=== PATIENT | female | born 1965 | race Caucasian/White ===

== ENCOUNTER 2016-09-05 13:39 | Outpatient (CLI) | payer BC, OTHER ==
--- NOTE | 2016-09-09 08:14 | Mammography Report ---
DIGITAL BILATERAL SCREENING MAMMOGRAM: 09/05/2016 CLINICAL HISTORY: This is a 51-year-old female in for routine screening mammogram. Patient has no f amily history of breast cancer. Patient has no breast surgeries. TECHNIQUE: Craniocaudad and oblique lateral views of each breast were obtained with [facility] Full [facility]ie [facility] digital mammography. To compliment the exam, axillary exaggerated craniocaudad view of the left b reast was done. FINDINGS: Breast parenchyma consists of scattered bilateral fibroglandular densities. They are most pronounced in the upper half of each breast. Equivocal finding is noted in regard to at least one new mass in the 12 o'clock position of the right breast 4 cm posterior superior to the right nipple as compared to preceding exam. Recommend patient return for coned-down compression craniocaudad, oblique lateral, and mediolateral views for further evaluation, and if necessary, ultrasound. There is also a cluster of calcification in the central as pect of the right breast 5.5 cm posterior to the right nipple that has shown progression over the cou rse of patient's mammograms over the last several years. Recommend magnification views in craniocaud ad and mediolateral projections for further evaluation. Left breast shows no significant abnormality. Benign calcifications are once again noted in the left breast. No significant masses are seen. IMPRESSION: FINDINGS ARE SUSPICIOUS FOR A NEW MASS MEASURING 1 CM IN DIAMETER IN THE 12 O'CLOCK POSI TION OF THE RIGHT BREAST. ALSO, THERE IS A SMALL CLUSTER OF CALCIFICATIONS IN THE CENTRAL ASPECT OF THE RIGHT BREAST THAT HAS SHOWN PROGRESSION OVER THE COURSE OF PATIENT'S SEVERAL MAMMOGRAMS. RECOMME ND PATIENT RETURN FOR ADDITIONAL IMAGING STUDIES FOR FURTHER EVALUATION INCLUDING ADDITIONAL VIEWS AN D POSSIBLY RIGHT BREAST ULTRASOUND. BIRADS 0 - INCOMPLETE. NEEDS ADDITIONAL IMAGING EVALUATION. STANDARD QUALIFYING STATEMENTS 1. This examination was reviewed with the aid of Computer-Aided Detection (CAD). 2. A negative or benign imaging report should not delay biopsy if clinically suspicious findings are present. Consider surgical consultation if warranted. More than 5% of cancers are not identified by i maging. 3. Dense breasts may obscure an underlying neoplasm. JOB #: [id number] EXT JOB #:[id number]
== END 2016-09-05 13:40 | disposition home or self-care (01) ==
LOC: DI.N 13:39
PROVIDERS: ATTEND Family Medicine
DX: Z12.31 Encounter for screening mammogram for malignant neoplasm of breast (principal); R92.1 Mammographic calcification found on diagnostic imaging of breast; N63 Unspecified lump in breast
CPT/HCPCS: 77067

== ENCOUNTER 2016-09-23 12:37 | Outpatient (CLI) | payer BC, OTHER ==
--- NOTE | 2016-09-23 14:01 | Mammography Report ---
DIGITAL DIAGNOSTIC RIGHT MAMMOGRAM: 09/23/2016 CLINICAL INDICATION: Possible obscured nodule right upper central breast, possible increase in calcif ications central right breast. TECHNIQUE: Right true lateral and spot magnification views. COMPARISON: 09/05/2016, 09/07/2015, 08/26/2014, 08/12/2013, 07/30/2012, 07/26/2011, 07/04/2011, 06/25, 06/19/2009, 05/19/2008. FINDINGS: The right breast again demonstrates heterogeneously dense fibroglandular parenchyma. The c alcifications in question, in the central right breast, appear unchanged on spot magnification views, with coarse and punctate morphology. No developing pleomorphism is seen. The density in the right up per central breast dissipates evenly on additional compression. No underlying nodule or mass lesion i s identified. IMPRESSION: BENIGN FINDINGS. RECOMMENDATION: ROUTINE ANNUAL SCREENING UNLESS OTHERWISE CLINICALLY INDICATED. BIRADS CATEGORY 2-BENIGN FINDINGS. STANDARD QUALIFYING STATEMENTS 1. This examination was reviewed with the aid of Computer-Aided Detection (CAD). 2. A negative or benign imaging report should not delay biopsy if clinically suspicious findings are present. Consider surgical consultation if warranted. More than 5% of cancers are not identified by i maging. 3. Dense breasts may obscure an underlying neoplasm. JOB #: [id number] EXT JOB #:[id number]
== END 2016-09-23 12:38 | disposition home or self-care (01) ==
LOC: DI 12:37
PROVIDERS: ATTEND Family Medicine
DX: N63 Unspecified lump in breast (principal); R92.1 Mammographic calcification found on diagnostic imaging of breast

== ENCOUNTER 2017-12-22 10:04 | Outpatient (CLI) | payer OTHER, BC ==
--- NOTE | 2017-12-22 11:14 | Mammography Report ---
Reason: BREAST PAIN, RIGHT Procedure Date: 12/22/2017 Accession Number: [id number] / [id number] Procedure: MARK ANTHONY - Diagnostic Dig Bilat CPT Code: FULL RESULT: EXAM: Diagnostic Dig Bilat DATE: 12/22/2017 11:02 AM CLINICAL HISTORY: Chronic right breast pain TECHNIQUE: Bilateral digital CC and MLO projections with right magnification views. Additional 3-D Cary symphysis. COMPARISON: 09/23/2016, 09/05/2016, 09/07/2015, 08/26/2014, 08/12/2013, 07/30/2012 and 07/26/2011 FINDINGS: The breast tissue is heterogeneously dense. Scattered calcifications in both breasts have not changed appreciably compared with prior studies. Asymmetric increased right upper outer quadrant density as before. No developing being pleomorphic calcifications, new architectural distortion, suspicious mass or other finding IMPRESSION: Benign findings RECOMMENDATION: Follow-up screening mammography in 12 months unless there is a clinical change. BIRADS CATEGORY 2: Benign findings STANDARD QUALIFYING STATEMENTS: 1. This examination was reviewed with the aid of Computer-Aided Detection (CAD). 2. A negative or benign imaging report should not delay biopsy if clinically suspicious findings are present. Consider surgical consultation if warrented. More than 5% of cancers are not identified by imaging. 3. Dense breasts may obscure an underlying neoplasm.
== END 2017-12-22 10:05 | disposition home or self-care (01) ==
LOC: DI 10:04
PROVIDERS: ATTEND Family Medicine
DX: N64.4 Mastodynia (principal)
CPT/HCPCS: 77062; 77066

== ENCOUNTER 2018-10-06 12:38 | Outpatient (CLI) | payer OTHER, BC ==
--- NOTE | 2018-10-06 16:16 | Ultrasound Report ---
Reason: LOCALIZED SUPERFICIAL SWELLING,MASS OR LUMP Procedure Date: 10/06/2018 Accession Number: [id number] / [id number] Procedure: US - Ext Limited Non Vascular CPT Code: FULL RESULT: EXAM: RIGHT UPPER EXTREMITY ULTRASOUND - LIMITED EXAM DATE: 10/06/2018 01:38 PM. CLINICAL HISTORY: Superficial upper extremity mass. COMPARISON: None. TECHNIQUE: Real-time scanning was performed with static images obtained. FINDINGS: There is a 5 x 3 x 5 mm cystic mass present without evidence of vascularity. There is mild acoustic enhancement. Mass is noncompressible. IMPRESSION: 5 mm cystic mass present without evidence of vascularity. RADIA
== END 2018-10-06 12:39 | disposition home or self-care (01) ==
LOC: DI 12:38
PROVIDERS: ATTEND Family Medicine
DX: D36.7 Benign neoplasm of other specified sites (principal)
CPT/HCPCS: 76882

== ENCOUNTER 2019-01-23 16:19 | Outpatient (CLI) | payer BC, OTHER ==
--- NOTE | 2019-01-28 09:45 | Mammography Report ---
Reason: SCREENING MAMMO Procedure Date: 01/23/2019 Accession Number: [id number] / [id number] Procedure: MARK ANTHONY - Screening Mammo w/Yasir CPT Code: FULL RESULT: EXAM: Screening Mammo w/Yasir DATE: 01/23/2019 4:50 PM CLINICAL HISTORY: Screening encounter. TECHNIQUE: (B) - Bilateral CC and MLO views were obtained. COMPARISON: 12/22/2017 through 06/19/2009. PARENCHYMAL PATTERN: (A) - The breast(s) demonstrate(s) scattered fibroglandular densities. FINDINGS: There are no suspicious masses, calcifications, or areas of distortion. IMPRESSION: Negative examination. BI-RADS category 1. RECOMMENDATION: (ANNUAL) - Recommend routine annual screening mammography. BI-RADS CATEGORY: (1) - Negative. STANDARD QUALIFYING STATEMENTS: 1. This examination was not reviewed with the aid of Computer-Aided Detection (CAD). 2. A negative or benign imaging report should not preclude biopsy if clinically suspicious findings are present. 3. Dense breasts may obscure an underlying neoplasm. 4. This examination was reviewed with the aid of 3D breast imaging (tomosynthesis).
== END 2019-01-23 16:20 | disposition home or self-care (01) ==
LOC: DI 16:19
DX: Z12.31 Encounter for screening mammogram for malignant neoplasm of breast (principal)
CPT/HCPCS: 77063; 77067

== ENCOUNTER 2020-08-14 10:54 | Outpatient (CLI) | payer BC, OTHER ==
--- NOTE | 2020-08-17 13:30 | Mammography Report ---
BILATERAL DIGITAL SCREENING MAMMOGRAM 3D/2D: 08/14/2020 CLINICAL: Routine screening. Comparison is made to exams dated: 01/23/2019 mammogram, 12/22/2017 mammogram, 09/23/2016 mammogram, and 09/05/2016 mammogram - [facility]. There are scattered fibroglandular elements in b oth breasts. No significant masses, calcifications, or other findings are seen in either breast. There has been no significant interval change. IMPRESSION: NEGATIVE There is no mammographic evidence of malignancy. A 1 year screening mammogram is recommended. This exam was interpreted at Station ID: [id number]. NOTE: For mammograms, a report in lay terms will be sent to the patient. Approximately 15% of breast malignancies will not be visualized mammographically. In the management of a palpable breast mass, a negative mammogram must not discourage biopsy of a clinically suspicious lesion. Electronically Signed By: Charmaine hoover/penrad:08/14/2020 13:21:20 ACR BI-RADS Category 1: Negative 3341F PARENCHYMAL PATTERN: (A) - The breast(s) demonstrate(s) scattered fibroglandular densities. BI-RADS CATEGORY: (1) - 1 RECOMMENDATION: (ANNUAL) - Recommend routine annual screening mammography. [id number] 1 year screening LATERALITY: (B)
== END 2020-08-14 10:55 | disposition home or self-care (01) ==
LOC: DI 10:54
DX: Z12.31 Encounter for screening mammogram for malignant neoplasm of breast (principal)

== ENCOUNTER 2021-01-01 09:55 | Day surgery (SDC) | payer BC, OTHER ==
[2021-01-01] MEDS ORDERED: LACTATED RINGERS 1,000 ML IV ONE ×2 (09:59→12:09)
--- NOTE | 2021-01-01 10:46 | ANESTHESIA ---
Pre-Anesthesia VS, & Labs - Diagnosis Hx of colon polyps - Procedure Colonoscopy Vital Signs: Temp Pulse Resp BP Pulse Ox 36.3 C L 84 14 121/76 98 01/01/21 10:03 01/01/21 10:03 01/01/21 10:03 01/01/21 10:03 01/01/21 10:03 Height: 6 ft 2 in Weight (kg): 65.6 kg Body Mass Index: 18.6 BMI Classification: Healthy weight - NPO >8 hours - Is Patient ?: No - Lab Results Lab results reviewed: Yes Home Medications and Allergies Fexofenadine/Pseudoephedrine [Jocelyne-D 24 Hour Tablet] 180 mg ORAL DAILY 11/02/15 Acetylcysteine [Nac] 600 mg PO BID 12/28/20 Apple Cider Vinegar 2 tab PO DAILY 12/28/20 Ascorbic Acid [Vitamin C] 500 mg PO DAILY 12/28/20 Desiccated Liver 4 tab PO DAILY 12/28/20 Digestive 8/L.acidoph/Pectin [Digestive Enzymes Tablet] 2 each PO BID 12/28/20 Dim Detox 1 tab PO BID 12/28/20 Holy Basil 1 tab PO DAILY 12/28/20 Levothyroxine Sodium [Tirosint] 88 mcg PO DAILY 12/28/20 Liothyronine [Cytomel] 5 mcg PO QDAC 12/28/20 Liver And Gallbladder Support 3 tab PO DAILY 12/28/20 Magnesium Citrate 1 - 2 mg PO BID 12/28/20 Meriva Curcumin Phytosome 500 2 tab PO BID 12/28/20 [place]-3/Dha/Epa/Fish Oil [Fish Oil 1,000 mg Softgel] 2 each PO DAILY 12/28/20 Suphedrine Pe 1 tab PO PRN PRN 12/28/20 Allergies/Adverse Reactions: Allergies Allergy/AdvReac Type Severity Reaction Status Date / Time meperidine HCl * AdvReac Nausea Verified 11/02/15 07:09 [From Demerol] morphine AdvReac Rash Verified 11/02/15 07:08 Anes History & Medical History - Anesthetic History Anesthesia Complications: reports: No previous complications Family history of Anesthesia Complications: Denies Family history of Malignant Hyperthermia: Denies - Medical History Cardiovascular: reports: Murmur Pulmonary: reports: None Gastrointestinal: reports: Colon polyps Urinary: reports: None Musculoskeletal: reports: Osteoarthritis Endocrine/Autoimmune: reports: HyPOthyroidism, Other Skin: reports: None - Surgical History General: reports: Colonoscopy Gynecologic: reports: Tubal ligation, Hysterectomy Orthopedic: reports: Arthroscopic surgery Exam General: Alert, Oriented x3, Cooperative, No acute distress Dental: WNL Mouth Openin Fingerbreadth Neck Mobility: Normal Mallampati classification: II Respiratory: Lungs clear, Normal breath sounds, No respiratory distress, No accessory muscle use Cardiovascular: Regular rate, Normal S1, Normal S2, No murmurs Plan Anesthesia Type: General, Total IV Consent for Procedure(s) Verified and Reviewed: Yes Code Status: Attempt Resuscitation ASA classification: 2-Mild systemic disease Is this case an emergency?: No
[2021-01-01] MEDS ORDERED: PROPOFOL 200 MG/20 ML VIAL IVP ONE (11:37)
[2021-01-01 12:37] VITALS: BP 118/66
--- NOTE | 2021-01-01 13:24 | ANESTHESIA POST OP EVALUATION ---
Anesthesia Post Eval - Post Anesthesia Eval Vitals: Last Vital Signs Temp 36.3 C L 01/01/21 12:36 Pulse 55 L 01/01/21 12:36 Resp 16 01/01/21 12:36 BP 118/66 01/01/21 12:36 Pulse Ox 97 01/01/21 12:36 CV Function Including HR & BP: Stable Pain Control: Satisfactory Nausea & Vomiting: Negative Mental Status: Baseline Respiratory Status: Airway Patent Hydration Status: Satisfactory Anesthesia Complications: None
== END 2021-01-01 09:56 | disposition home or self-care (01) ==
LOC: SDS 09:55
PROVIDERS: ATTEND Surgery
PROC: 0DBP8ZZ Excision of Rectum, Via Natural or Artificial Opening Endoscopic (ICD-10-PCS; 2021-01-01)
PROC: 0DBM8ZX Excision of Descending Colon, Via Natural or Artificial Opening Endoscopic, Diagnostic (ICD-10-PCS; 2021-01-01)
PROC: 0DBK8ZZ Excision of Ascending Colon, Via Natural or Artificial Opening Endoscopic (ICD-10-PCS; principal; 2021-01-01 12:00)
DX: Z12.11 Encounter for screening for malignant neoplasm of colon (principal); D12.2 Benign neoplasm of ascending colon; D12.4 Benign neoplasm of descending colon; K62.1 Rectal polyp; R01.1 Cardiac murmur, unspecified; E03.9 Hypothyroidism, unspecified; Z86.73 Personal history of transient ischemic attack (TIA), and cerebral infarction without residual deficits; Z79.899 Other long term (current) drug therapy
CPT/HCPCS: 45380; J7120

== ENCOUNTER 2021-12-30 08:00 | Outpatient (CLI) | payer OTHER, BC ==
--- NOTE | 2021-12-30 10:00 | XRAY Report ---
PROCEDURE: Wrist 4 View LT INDICATIONS: LEFT WRIST PAIN TECHNIQUE: 4 views of the wrist were acquired. COMPARISON: None FINDINGS: Bones: No fractures or dislocations. No suspicious bony lesions. Scaphoid view: Normal Soft tissues: No suspicious soft tissue calcifications. IMPRESSION: Negative left wrist. Reviewed by: Harish Lopez MD on 12/30/2021 9:59 AM PDT Approved by: Harish Lopez MD on 12/30/2021 9:59 AM PDT Station ID: [id number]
== END 2021-12-30 23:59 | disposition home or self-care (01) ==
LOC: DI.N 08:00
PROVIDERS: ATTEND Family Medicine
DX: S60.212A Contusion of left wrist, initial encounter (principal)

== ENCOUNTER 2023-02-13 11:15 | Outpatient (CLI) | payer BC, OTHER ==
--- NOTE | 2023-02-14 15:06 | Mammography Report ---
BILATERAL DIGITAL SCREENING MAMMOGRAM 3D/2D: 02/13/2023 CLINICAL: Routine screening. Comparison is made to exams dated: 11/22/2021 mammogram, 08/14/2020 mammogram, 01/23/2019 mammogram, 12/22 mammogram, 09/23/2016 mammogram, and 09/05/2016 mammogram - [facility]. There are scattered areas of fibroglandular density in both breasts (category b / 25%-50% glandular t issue). No significant masses, calcifications, or other findings are seen in either breast. IMPRESSION: NEGATIVE There is no mammographic evidence of malignancy. A 1 year screening mammogram is recommended. Based on the Tyrer Cuzick model (a risk assessment model) the patients lifetime risk is 6.5% and her 10 year risk is 2.2%. According to the ACR, ACS, and NCCN guidelines, an annual breast MRI exam michael g with mammogram is recommended if the patients lifetime risk is 20% or greater. This exam was interpreted at Station ID: [id number]. NOTE: For mammograms, a report in lay terms will be sent to the patient. Approximately 15% of breast malignancies will not be visualized mammographically. In the management of a palpable breast mass, a negative mammogram must not discourage biopsy of a clinically suspicious lesion. Electronically Signed By: Natasha Varma M.D., PH.D eb/[email or web address]:02/13/2023 19:50:13 letter sent: No_Letter ACR BI-RADS Category 1: Negative 3341F PARENCHYMAL PATTERN: (A) - The breast(s) demonstrate(s) scattered fibroglandular densities. BI-RADS CATEGORY: (1) - 1 Mammogram [id number] 1 year screening LATERALITY: (B)
== END 2023-02-13 11:16 | disposition home or self-care (01) ==
LOC: DI.N 11:15
DX: Z12.31 Encounter for screening mammogram for malignant neoplasm of breast (principal); R92.323 Mammographic fibroglandular density, bilateral breasts